=== PATIENT | male | born 1950 | race Caucasian/White ===

== ENCOUNTER 2022-05-27 09:19 | Inpatient (IN) | payer OTHER ==
[2022-05-27] VITALS (14 sets, daily range): BP systolic 90–161; BP diastolic 59–105
[~2022-05-27] VITALS: Ht 170.2 cm; Wt 78.9 kg
[2022-05-27 10:36] LABS: BG BASE EXCESS -3.7 mmol/L (-2.0-2.0); BG DEOXYHEMOGLOBIN 0.4 % (0.0-5.0); BG FRACTION INSPIRED OXYGEN 100; BG HCO3 ACT 25.4 mmol/L (22.0-26.0); BG METHEMOGLOBIN 0.3 % (0.0-1.5); BG OXYGEN SATURATION 99.6 % (92.0-98.5); BG OXYHEMOGLOBIN 98.3 % (94.0-97.0); BG PCO2 66.1 mmHg (35.0-45.0); BG PH 7.203 (7.350-7.450); BG PO2 377.7 mmHg (75.0-100.0); BG SAMPLE SITE RIGHT RADIAL; BG TOTAL HEMOGLOBIN 13.1 g/dL (12.0-18.0); BG TOTAL RESPIRATORY RATE 39 b/min; BG VENT MODE MASK - BIPAP
[2022-05-27 10:37] LABS: BASOPHILS % 0.8 % (0.0-2.0); EOSINOPHILS % 2.2 % (0.0-5.0); HEMATOCRIT. 37.8 % (42.0-52.0); HEMOGLOBIN. 12.4 g/dL (14.0-18.0); LYMPHOCYTES % 26.1 % (20.0-50.0); MEAN CORPUSCULAR HEMOGLOBIN 31.5 pg (28.0-32.0); MEAN CORPUSCULAR VOLUME 95.9 fL (80.0-94.0); MEAN PLATELET VOLUME 8.6 fl (7.4-10.4); MONOCYTES % 5.4 % (2.0-8.0); NEUTROPHILS % 65.5 % (40.0-76.0); PLATELET 215 x1000/uL (130-400); RED BLOOD CELL COUNT 3.94 mill/uL (4.7-6.1); RED CELL DISTRIBUTION WIDTH 14.3 % (11.6-14.6)
[2022-05-27 10:42] LABS: INR 1.1; PROTHROMBIN TIME 11.4 sec (9.6-11.0)
[2022-05-27 11:01] LABS: CHLORIDE 103 mEq/L (98-107)
[2022-05-27] MEDS ORDERED: FUROSEMIDE 40MG/4ML VIAL IVP ONE (11:15)
[2022-05-27] MEDS ORDERED: ASPIRIN 325MG EC TABLET PO NR (11:45)
[2022-05-27] MEDS ORDERED: CLONIDINE 0.1MG TABLET PO PRN (12:45)
[2022-05-27] MEDS ORDERED: GUAIFENESIN 200MG/10ML SUGAR FREE UDC PO PRN (12:45)
[2022-05-27] MEDS ORDERED: ACETAMINOPHEN 325MG TABLET PO PRN (12:45)
[2022-05-27] MEDS ORDERED: DIPHENHYDRAMINE 50MG/ML VIAL IV PRN (12:45)
[2022-05-27] MEDS ORDERED: DOCUSATE SODIUM 100MG CAPSULE PO PRN (12:45)
[2022-05-27] MEDS ORDERED: TRAMADOL 50MG TABLET PO PRN (12:45)
[2022-05-27] MEDS ORDERED: MAGNESIUM/ALUMINUM HYDROXIDE/SIMETHICONE 30ML UDC PO PRN (12:45)
[2022-05-27] MEDS ORDERED: ONDANSETRON HCL 4MG/2ML INJ IV PRN (12:45)
[2022-05-27] MEDS ORDERED: NALOXONE HCL 0.4MG/ML VIAL IV PRN (13:00)
[2022-05-27] MEDS: AMLODIPINE 10MG TABLET PO SCH (13:25)
[2022-05-27 15:10] LABS: BG CARBOXYHEMOGLOBIN 0.5 % (0.5-1.5); BG DEOXYHEMOGLOBIN 5.4 % (0.0-5.0); BG FRACTION INSPIRED OXYGEN 32; BG HCO3 ACT 21.5 mmol/L (22.0-26.0); BG METHEMOGLOBIN 0.3 % (0.0-1.5); BG OXYGEN SATURATION 94.6 % (92.0-98.5); BG OXYHEMOGLOBIN 93.8 % (94.0-97.0); BG PCO2 40.5 mmHg (35.0-45.0); BG PH 7.342 (7.350-7.450); BG PO2 76.2 mmHg (75.0-100.0); BG SAMPLE SITE RIGHT BRACHIAL; BG TOTAL HEMOGLOBIN 12.2 g/dL (12.0-18.0); BG VENT MODE NASAL CANNULA
[2022-05-27] MEDS: ENOXAPARIN 30MG/0.3ML SYR SUBCUT SCH (15:18)
[2022-05-27] MEDS: IPRATROPIUM/ALBUTEROL 0.5-3(2.5)MG/3ML NEB HHN SCH ×2 (16:12→20:59)
[2022-05-27] MEDS ORDERED: DEXTROSE 50% WATER 50ML SYRINGE IV PRN (17:15)
[2022-05-27] MEDS: BLOOD SUGAR DIAGNOSTIC STRIP TEST SCH ×2 (17:33→21:00)
[2022-05-27] MEDS: INSULIN LISPRO 100 UNITS/ML SUBCUT SCH ×2 (17:37→21:43)
[2022-05-28] VITALS (9 sets, daily range): BP systolic 111–134; BP diastolic 41–79
[2022-05-28] MEDS: IPRATROPIUM/ALBUTEROL 0.5-3(2.5)MG/3ML NEB HHN SCH ×6 (00:26→21:45)
[2022-05-28 06:13] LABS: CHLORIDE 107 mEq/L (98-107)
[2022-05-28 06:21] LABS: BASOPHILS % 0.5 % (0.0-2.0); EOSINOPHILS % 0.9 % (0.0-5.0); HEMATOCRIT. 31.5 % (42.0-52.0); HEMOGLOBIN. 10.4 g/dL (14.0-18.0); LYMPHOCYTES % 16.7 % (20.0-50.0); MEAN CORPUSCULAR HEMOGLOBIN 31.3 pg (28.0-32.0); MEAN CORPUSCULAR VOLUME 94.9 fL (80.0-94.0); MEAN PLATELET VOLUME 8.4 fl (7.4-10.4); MONOCYTES % 7.1 % (2.0-8.0); NEUTROPHILS % 74.8 % (40.0-76.0); PLATELET 165 x1000/uL (130-400); RED BLOOD CELL COUNT 3.32 mill/uL (4.7-6.1); RED CELL DISTRIBUTION WIDTH 14.4 % (11.6-14.6)
[2022-05-28 06:28] LABS: HDL CHOLESTEROL 49 mg/dL (40-59); LDL CHOLESTEROL 43 mg/dL (5-100)
[2022-05-28] MEDS: BLOOD SUGAR DIAGNOSTIC STRIP TEST SCH ×4 (08:11→20:29)
[2022-05-28] MEDS: AMLODIPINE 10MG TABLET PO SCH (08:13)
[2022-05-28] MEDS: ASPIRIN 81MG EC TABLET PO SCH (08:14)
[2022-05-28] MEDS: INSULIN LISPRO 100 UNITS/ML SUBCUT SCH ×4 (08:28→20:37)
[2022-05-28 09:05] LABS: BG BASE EXCESS 0.9 mmol/L (-2.0-2.0); BG CARBOXYHEMOGLOBIN 0.9 % (0.5-1.5); BG DEOXYHEMOGLOBIN 5.3 % (0.0-5.0); BG FRACTION INSPIRED OXYGEN 21; BG HCO3 ACT 25.7 mmol/L (22.0-26.0); BG METHEMOGLOBIN 0.3 % (0.0-1.5); BG OXYGEN SATURATION 94.6 % (92.0-98.5); BG OXYHEMOGLOBIN 93.5 % (94.0-97.0); BG PCO2 41.6 mmHg (35.0-45.0); BG PH 7.408 (7.350-7.450); BG PO2 70.2 mmHg (75.0-100.0); BG SAMPLE SITE RIGHT BRACHIAL; BG TOTAL HEMOGLOBIN 11.6 g/dL (12.0-18.0); BG VENT MODE ROOM AIR
[2022-05-28] MEDS: ENOXAPARIN 30MG/0.3ML SYR SUBCUT SCH (17:10)
[2022-05-29] VITALS (14 sets, daily range): BP systolic 108–133; BP diastolic 35–75
[2022-05-29] MEDS: IPRATROPIUM/ALBUTEROL 0.5-3(2.5)MG/3ML NEB HHN SCH ×3 (04:00→08:17)
[2022-05-29 07:02] LABS: BASOPHILS % 0.9 % (0.0-2.0); EOSINOPHILS % 1.9 % (0.0-5.0); HEMATOCRIT. 29.3 % (42.0-52.0); HEMOGLOBIN. 9.9 g/dL (14.0-18.0); MEAN CORPUSCULAR HEMOGLOBIN 32.2 pg (28.0-32.0); MEAN CORPUSCULAR VOLUME 94.8 fL (80.0-94.0); MEAN PLATELET VOLUME 8.4 fl (7.4-10.4); MONOCYTES % 7.4 % (2.0-8.0); NEUTROPHILS % 70.8 % (40.0-76.0); PLATELET 140 x1000/uL (130-400); RED BLOOD CELL COUNT 3.09 mill/uL (4.7-6.1); RED CELL DISTRIBUTION WIDTH 14.7 % (11.6-14.6)
[2022-05-29] MEDS: BLOOD SUGAR DIAGNOSTIC STRIP TEST SCH ×2 (07:51→13:01)
[2022-05-29] MEDS: INSULIN LISPRO 100 UNITS/ML SUBCUT SCH ×2 (07:51→13:18)
[2022-05-29 09:25] LABS: BG BASE EXCESS -2.3 mmol/L (-2.0-2.0); BG CARBOXYHEMOGLOBIN 0.4 % (0.5-1.5); BG DEOXYHEMOGLOBIN 4.8 % (0.0-5.0); BG FRACTION INSPIRED OXYGEN 21; BG HCO3 ACT 21.6 mmol/L (22.0-26.0); BG METHEMOGLOBIN 0.3 % (0.0-1.5); BG OXYGEN SATURATION 95.2 % (92.0-98.5); BG OXYHEMOGLOBIN 94.5 % (94.0-97.0); BG PCO2 34.1 mmHg (35.0-45.0); BG PO2 78.8 mmHg (75.0-100.0); BG SAMPLE SITE RIGHT RADIAL; BG TOTAL HEMOGLOBIN 10.7 g/dL (12.0-18.0); BG VENT MODE ROOM AIR
[2022-05-29] MEDS: ASPIRIN 81MG EC TABLET PO SCH (09:44)
[2022-05-29 17:31] LABS: HEPATITIS B SURFACE ANTIGEN NEGATIVE
== END 2022-05-29 16:25 | disposition home or self-care (01) | DRG 291 ==
LOC: ER 09:19 → EDBEDREQ 10:53 → EDBEDREQTM 10:53 → EDBEDREQSVC 10:53 → MICUSO 11:40 → EDBEDREQ 11:51 → EDBEDREQTM 11:51 → 5EST 14:09
PROVIDERS: ADMIT Hospitalist; ATTEND Hospitalist
PROC: 5A09357 Assistance with Respiratory Ventilation, Less than 24 Consecutive Hours, Continuous Positive Airway Pressure (ICD-10-PCS; principal; 2022-05-27)
PROC: 5A1D70Z Performance of Urinary Filtration, Intermittent, Less than 6 Hours Per Day (ICD-10-PCS; 2022-05-27)
PROC: 5A1D70Z Performance of Urinary Filtration, Intermittent, Less than 6 Hours Per Day (ICD-10-PCS; 2022-05-29)
DX: I13.2 Hypertensive heart and chronic kidney disease with heart failure and with stage 5 chronic kidney disease, or end stage renal disease (principal); I50.43 Acute on chronic combined systolic (congestive) and diastolic (congestive) heart failure; J96.01 Acute respiratory failure with hypoxia; J96.02 Acute respiratory failure with hypercapnia; N18.6 End stage renal disease; E87.29 Other acidosis; E11.22 Type 2 diabetes mellitus with diabetic chronic kidney disease; Z20.822 Contact with and (suspected) exposure to COVID-19; E11.65 Type 2 diabetes mellitus with hyperglycemia; D72.829 Elevated white blood cell count, unspecified; I25.10 Atherosclerotic heart disease of native coronary artery without angina pectoris; D64.9 Anemia, unspecified; Z95.1 Presence of aortocoronary bypass graft; Z99.2 Dependence on renal dialysis; Z82.49 Family history of ischemic heart disease and other diseases of the circulatory system
CPT/HCPCS: 36415; 36600; 71045; 80048; 80053; 80061; 82375; 82805; 82962; 83036; 84484; 85025; 86705; 86709; 86803; 87340; 87426; 90935; 93005; 93970; 94640; 94660; 97162; 97166; 97535; 99285; C9803; J1650; J1815; J1940

== ENCOUNTER 2022-07-29 07:43 | Inpatient (IN) | payer OTHER ==
[2022-07-29] VITALS (36 sets, daily range): BP systolic 55–197; BP diastolic 35–114
[~2022-07-29] VITALS: Ht 165.1 cm; Wt 68.0 kg
[2022-07-29] MEDS ORDERED: NITROGLYCERIN 50MG PREMIX 250 ML IV ONE (08:00)
[2022-07-29] MEDS ORDERED: FUROSEMIDE 40MG/4ML VIAL IV ONE (08:00)
[2022-07-29] MEDS ORDERED: SUCCINYLCHOLINE CHLORIDE 200MG/10ML IV ONE ×2 (08:15→08:57)
[2022-07-29] MEDS ORDERED: ETOMIDATE 2MG/ML 10ML VIAL IV ONE ×2 (08:15→08:57)
[2022-07-29] MEDS: NITROGLYCERIN 50MG PREMIX 250 ML IV NR ×2 (08:15→18:36)
[2022-07-29] MEDS ORDERED: PROPOFOL 200MG/20ML VIAL IV ONE (08:15)
[2022-07-29] MEDS ORDERED: PROPOFOL 10MG/ML 100ML 100 ML IV SCH (08:45)
[2022-07-29] MEDS ORDERED: PROPOFOL 10MG/ML 100ML 100 ML IV PRN (08:45)
[2022-07-29 09:06] LABS: BASOPHILS % 0.5 % (0.0-2.0); HEMATOCRIT. 43.8 % (42.0-52.0); HEMOGLOBIN. 14.3 g/dL (14.0-18.0); LYMPHOCYTES % 39.7 % (20.0-50.0); MEAN CORPUSCULAR HEMOGLOBIN 31.4 pg (28.0-32.0); MEAN CORPUSCULAR VOLUME 96.6 fL (80.0-94.0); MONOCYTES % 4.3 % (2.0-8.0); NEUTROPHILS % 52.5 % (40.0-76.0); PLATELET 178 x1000/uL (130-400); RED BLOOD CELL COUNT 4.54 mill/uL (4.7-6.1); RED CELL DISTRIBUTION WIDTH 14.4 % (11.6-14.6)
[2022-07-29 09:12] LABS: CHLORIDE 111 mEq/L (98-107); INR 1.1; PARTIAL THROMBOPLASTIN TIME 31.7 sec (23.4-31.0); PROTHROMBIN TIME 11.7 sec (9.6-11.0)
[2022-07-29] MEDS ORDERED: PIPERACILLIN/TAZOBACTAM 3.375GM/50ML PREMIX IV ONE (09:30)
[2022-07-29] MEDS ORDERED: PIPERACILLIN/TAZ 3.375G PREMIX 50 ML IV NR (09:45)
[2022-07-29 10:34] LABS: BG BASE EXCESS -5.3 mmol/L (-2.0-2.0); BG CARBOXYHEMOGLOBIN 0.9 % (0.5-1.5); BG DEOXYHEMOGLOBIN 0.3 % (0.0-5.0); BG FRACTION INSPIRED OXYGEN 100; BG HCO3 ACT 21.4 mmol/L (22.0-26.0); BG METHEMOGLOBIN 0.3 % (0.0-1.5); BG OXYGEN SATURATION 99.7 % (92.0-98.5); BG OXYHEMOGLOBIN 98.5 % (94.0-97.0); BG PCO2 46.1 mmHg (35.0-45.0); BG PH 7.285 (7.350-7.450); BG PO2 476.3 mmHg (75.0-100.0); BG SAMPLE SITE RIGHT RADIAL; BG VENT MODE VENT - AC
[2022-07-29] MEDS ORDERED: FENTANYL 2500MCG/250ML PMX 250 ML IV ONE (11:00)
[2022-07-29] MEDS ORDERED: FENTANYL 2500MCG/250ML PMX 250 ML IV PRN ×2 (11:15→14:30)
[2022-07-29] MEDS ORDERED: CALCIUM GLUCONATE 1,000 MG in DEXT 5% WATER 100 ML IV ONE (11:45)
[2022-07-29] MEDS ORDERED: DEXTROSE 50% WATER 50ML SYRINGE IV ONE (11:45)
[2022-07-29] MEDS ORDERED: INSULIN REGULAR (HUMULIN R) 300UNITS/3ML VIAL IV ONE (11:45)
[2022-07-29] MEDS ORDERED: CALCIUM GLUCONATE 1GM PREMIX 50 ML IV NR (11:45)
[2022-07-29] MEDS ORDERED: FUROSEMIDE 100MG/10ML VIAL IV ONE (11:45)
[2022-07-29] MEDS ORDERED: SODIUM BICARBONATE 8.4% 1 MEQ/ML 50ML SYR IV ONE (11:45)
[2022-07-29] MEDS ORDERED: FUROSEMIDE 100MG/10ML VIAL IV NR (13:30)
[2022-07-29] MEDS ORDERED: MAGNESIUM/ALUMINUM HYDROXIDE/SIMETHICONE 30ML UDC PO PRN (14:00)
[2022-07-29] MEDS ORDERED: HYDROCODONE/ACETAMINOPHEN 5/325MG TABLET PO PRN (14:00)
[2022-07-29] MEDS ORDERED: FENTANYL CITRATE/PF 2,500 MCG in SODIUM CHLORIDE 0.9% 200 ML IV PRN (14:00)
[2022-07-29] MEDS ORDERED: IPRATROPIUM/ALBUTEROL 0.5-3(2.5)MG/3ML NEB HHN PRN ×2 (14:00)
[2022-07-29] MEDS ORDERED: ONDANSETRON HCL 4MG/2ML INJ IV PRN (14:00)
[2022-07-29] MEDS ORDERED: ACETAMINOPHEN 325MG TABLET PO PRN ×2 (14:00)
[2022-07-29] MEDS ORDERED: CLONIDINE 0.1MG TABLET PO PRN (14:00)
[2022-07-29] MEDS ORDERED: NOREPINEPHRINE 8MG/250ML PMX 250 ML IV ONE (14:15)
[2022-07-29] MEDS ORDERED: DEXTROSE 50% WATER 50ML SYRINGE IV PRN (14:30)
[2022-07-29] MEDS ORDERED: NOREPINEPHRINE 8 MG in DEXTROSE 5% WATER 250 ML IV PRN (14:30)
[2022-07-29] MEDS ORDERED: AZITHROMYCIN 500 MG in DEXT 5% WATER 250 ML IV SCH (15:00)
[2022-07-29] MEDS ORDERED: AZITHROMYCIN 500MG/250ML 250 ML IV NR (16:02)
[2022-07-29] MEDS: BLOOD SUGAR DIAGNOSTIC STRIP TEST SCH ×2 (16:30→21:00)
[2022-07-29] MEDS ORDERED: NALOXONE HCL 0.4MG/ML VIAL IV PRN (16:30)
[2022-07-29] MEDS: ENOXAPARIN 30MG/0.3ML SYR SUBCUT SCH (16:41)
[2022-07-29 16:51] LABS: HEPATITIS B SURFACE ANTIGEN NEGATIVE
[2022-07-29] MEDS: INSULIN LISPRO 100 UNITS/ML SUBCUT SCH ×2 (17:00→22:14)
[2022-07-29] MEDS: FUROSEMIDE 40MG/4ML VIAL IV SCH (18:29)
[2022-07-29] MEDS ORDERED: AZITHROMYCIN 1,000 MG in DEXT 5% WATER 250 ML IV NR (18:30)
[2022-07-29] MEDS: CARVEDILOL 3.125 MG TABLET PO SCH (18:30)
[2022-07-29] MEDS: PROPOFOL 10MG/ML 100ML 100 ML IV PRN (18:36)
[2022-07-29 19:49] LABS: CLARITY URINE CLOUDY (CLEAR); COLOR URINE ORANGE (YELLOW); KETONES URINE NEGATIVE (NEGATIVE); LEUKOCYTE ESTERASE URINE 3+ (NEGATIVE); NITRITE URINE NEGATIVE (NEGATIVE); OCCULT BLOOD URINE 3+ (NEGATIVE); PH URINE 7.5 (4.5-8.0); PROTEIN URINE 2+ (NEGATIVE); SPECIFIC GRAVITY URINE 1.012 (1.005-1.030); UROBILINOGEN URINE 0.2 E.U./dL (0.2-1.0)
[2022-07-29] MEDS: IPRATROPIUM/ALBUTEROL 0.5-3(2.5)MG/3ML NEB HHN SCH (20:39)
[2022-07-29 22:10] LABS: *AMPHETAMINES SCREEN URINE NEGATIVE (NEGATIVE); *BARBITURATES SCREEN URINE NEGATIVE (NEGATIVE); *BENZODIAZEPINES SCREEN URINE NEGATIVE (NEGATIVE); *COCAINE SCREEN URINE NEGATIVE (NEGATIVE); CANNABINOID URINE SCREEN NEGATIVE (NEGATIVE); METHADONE URINE SCREEN NEGATIVE (NEGATIVE); OPIATES URINE SCREEN NEGATIVE (NEGATIVE); PHENCYCLIDINE URINE SCREEN NEGATIVE (NEGATIVE)
[2022-07-29] MEDS: ATORVASTATIN CALCIUM 40MG TABLET PO SCH (22:13)
[2022-07-29] MEDS: CEFTRIAXONE 1,000 MG in DEXTROSE 5% WATER 50 ML IV SCH (22:44)
[2022-07-30] VITALS (72 sets, daily range): BP systolic 91–140; BP diastolic 23–113
[2022-07-30] MEDS: PROPOFOL 10MG/ML 100ML 100 ML IV PRN ×2 (00:04→05:21)
[2022-07-30] MEDS: IPRATROPIUM/ALBUTEROL 0.5-3(2.5)MG/3ML NEB HHN SCH ×3 (00:47→14:32)
[2022-07-30 05:59] LABS: BASOPHILS % 0.7 % (0.0-2.0); EOSINOPHILS % 2.3 % (0.0-5.0); HEMATOCRIT. 37.9 % (42.0-52.0); HEMOGLOBIN. 12.8 g/dL (14.0-18.0); LYMPHOCYTES % 20.9 % (20.0-50.0); MEAN CORPUSCULAR HEMOGLOBIN 31.8 pg (28.0-32.0); MEAN CORPUSCULAR VOLUME 94.2 fL (80.0-94.0); MEAN PLATELET VOLUME 9.1 fl (7.4-10.4); MONOCYTES % 9.2 % (2.0-8.0); NEUTROPHILS % 66.9 % (40.0-76.0); PLATELET 154 x1000/uL (130-400); RED BLOOD CELL COUNT 4.03 mill/uL (4.7-6.1); RED CELL DISTRIBUTION WIDTH 14.7 % (11.6-14.6)
[2022-07-30] MEDS: INSULIN LISPRO 100 UNITS/ML SUBCUT SCH ×4 (06:06→22:00)
[2022-07-30] MEDS: BLOOD SUGAR DIAGNOSTIC STRIP TEST SCH ×4 (06:06→21:42)
[2022-07-30 07:00] LABS: CHLORIDE 106 mEq/L (98-107)
[2022-07-30 07:25] LABS: HDL CHOLESTEROL 46 mg/dL (40-59); LDL CHOLESTEROL 34 mg/dL (5-100); T4 FREE 1.26 ng/dL (0.76-1.46)
[2022-07-30] MEDS: FUROSEMIDE 40MG/4ML VIAL IV SCH ×2 (08:28→16:28)
[2022-07-30] MEDS: PANTOPRAZOLE SODIUM 40 MG/VIAL IV SCH (08:28)
[2022-07-30 08:51] LABS: BG BASE EXCESS 1.5 mmol/L (-2.0-2.0); BG CARBOXYHEMOGLOBIN 0.4 % (0.5-1.5); BG DEOXYHEMOGLOBIN 1.3 % (0.0-5.0); BG FRACTION INSPIRED OXYGEN 35; BG HCO3 ACT 24.2 mmol/L (22.0-26.0); BG METHEMOGLOBIN 0.2 % (0.0-1.5); BG OXYGEN SATURATION 98.7 % (92.0-98.5); BG OXYHEMOGLOBIN 98.1 % (94.0-97.0); BG PCO2 32.7 mmHg (35.0-45.0); BG PH 7.488 (7.350-7.450); BG PO2 150.1 mmHg (75.0-100.0); BG SAMPLE SITE RIGHT RADIAL; BG TOTAL HEMOGLOBIN 13.7 g/dL (12.0-18.0); BG VENT MODE VENT - AC
[2022-07-30] MEDS: CARVEDILOL 3.125 MG TABLET PO SCH ×2 (09:00→16:29)
[2022-07-30] MEDS ORDERED: CEFTRIAXONE 1 G PREMIX 50 ML IV SCH (09:00)
[2022-07-30 12:10] LABS: BG CARBOXYHEMOGLOBIN 0.3 % (0.5-1.5); BG DEOXYHEMOGLOBIN 1.8 % (0.0-5.0); BG FRACTION INSPIRED OXYGEN 35; BG HCO3 ACT 23.9 mmol/L (22.0-26.0); BG METHEMOGLOBIN 0.1 % (0.0-1.5); BG OXYGEN SATURATION 98.2 % (92.0-98.5); BG OXYHEMOGLOBIN 97.8 % (94.0-97.0); BG PCO2 36.9 mmHg (35.0-45.0); BG PO2 122.5 mmHg (75.0-100.0); BG SAMPLE SITE RIGHT RADIAL; BG TOTAL HEMOGLOBIN 13.2 g/dL (12.0-18.0); BG VENT MODE VENT - CPAP
[2022-07-30] MEDS: ENOXAPARIN 30MG/0.3ML SYR SUBCUT SCH (14:07)
[2022-07-30] MEDS ORDERED: AZITHROMYCIN 500 MG in DEXT 5% WATER 250 ML IV SCH (16:00)
[2022-07-30] MEDS: ASPIRIN 81MG TABLET PO SCH (16:28)
[2022-07-30] MEDS ORDERED: IPRATROPIUM BROMIDE (0.02%) 0.5MG/2.5ML NEB HHN PRN (20:00)
[2022-07-30] MEDS ORDERED: ALBUTEROL (0.083%) 2.5MG/3ML NEB HHN PRN (20:00)
[2022-07-30] MEDS: ATORVASTATIN CALCIUM 40MG TABLET PO SCH (21:59)
[2022-07-31] VITALS (12 sets, daily range): BP systolic 89–133; BP diastolic 28–94
[2022-07-31] MEDS: CEFTRIAXONE 1,000 MG in DEXTROSE 5% WATER 50 ML IV SCH (00:11)
[2022-07-31] MEDS: IPRATROPIUM BROMIDE (0.02%) 0.5MG/2.5ML NEB HHN SCH ×3 (01:56→14:54)
[2022-07-31] MEDS: ALBUTEROL (0.083%) 2.5MG/3ML NEB HHN SCH ×3 (01:56→14:54)
[2022-07-31 05:57] LABS: BASOPHILS % 0.6 % (0.0-2.0); EOSINOPHILS % 2.8 % (0.0-5.0); HEMATOCRIT. 36.9 % (42.0-52.0); HEMOGLOBIN. 12.4 g/dL (14.0-18.0); LYMPHOCYTES % 24.1 % (20.0-50.0); MEAN CORPUSCULAR HEMOGLOBIN 31.6 pg (28.0-32.0); MEAN CORPUSCULAR VOLUME 93.8 fL (80.0-94.0); MEAN PLATELET VOLUME 8.9 fl (7.4-10.4); MONOCYTES % 9.6 % (2.0-8.0); NEUTROPHILS % 62.9 % (40.0-76.0); PLATELET 122 x1000/uL (130-400); RED BLOOD CELL COUNT 3.93 mill/uL (4.7-6.1); RED CELL DISTRIBUTION WIDTH 14.6 % (11.6-14.6)
[2022-07-31] MEDS: BLOOD SUGAR DIAGNOSTIC STRIP TEST SCH ×4 (07:30→21:33)
[2022-07-31 07:43] LABS: CHLORIDE 105 mEq/L (98-107)
[2022-07-31] MEDS: INSULIN LISPRO 100 UNITS/ML SUBCUT SCH ×4 (08:00→21:00)
[2022-07-31] MEDS: CARVEDILOL 3.125 MG TABLET PO SCH ×2 (09:00→16:42)
[2022-07-31] MEDS: ASPIRIN 81MG TABLET PO SCH (09:08)
[2022-07-31] MEDS: FUROSEMIDE 40MG/4ML VIAL IV SCH ×2 (09:08→16:43)
[2022-07-31] MEDS: PANTOPRAZOLE SODIUM 40 MG/VIAL IV SCH (09:08)
[2022-07-31 10:57] LABS: T4 FREE 1.33 ng/dL (0.76-1.46)
[2022-07-31] MEDS ORDERED: AMIODARONE HCL 900 MG in DEXT 5% WATER 482 ML IV SCH (13:00)
[2022-07-31] MEDS ORDERED: METOPROLOL TARTRATE 5MG/5ML VIAL IV NR (13:00)
[2022-07-31] MEDS ORDERED: ENOXAPARIN 60MG/0.6ML SYR SUBCUT SCH (15:00)
[2022-07-31] MEDS: AZITHROMYCIN 500 MG TABLET PO SCH (16:19)
[2022-07-31 17:04] LABS: CREATINE KINASE MB FRACTION 3.5 ng/mL (0.5-3.6)
[2022-07-31] MEDS: AMOXICILLIN/POTASSIUM CLAVULANATE 500/125MG TAB PO SCH (21:20)
[2022-07-31] MEDS: ATORVASTATIN CALCIUM 40MG TABLET PO SCH (21:21)
[2022-08-01] VITALS (7 sets, daily range): BP systolic 63–134; BP diastolic 34–101
[2022-08-01 00:52] LABS: CREATINE KINASE MB FRACTION 11.9 ng/mL (0.5-3.6)
[2022-08-01] MEDS: BLOOD SUGAR DIAGNOSTIC STRIP TEST SCH ×4 (06:54→21:00)
[2022-08-01] MEDS: INSULIN LISPRO 100 UNITS/ML SUBCUT SCH ×4 (06:55→21:52)
[2022-08-01 08:05] LABS: BASOPHILS % 0.7 % (0.0-2.0); EOSINOPHILS % 4.3 % (0.0-5.0); HEMATOCRIT. 35.4 % (42.0-52.0); HEMOGLOBIN. 11.8 g/dL (14.0-18.0); LYMPHOCYTES % 25.1 % (20.0-50.0); MEAN CORPUSCULAR HEMOGLOBIN 31.8 pg (28.0-32.0); MEAN CORPUSCULAR VOLUME 95.1 fL (80.0-94.0); MEAN PLATELET VOLUME 9.2 fl (7.4-10.4); MONOCYTES % 9.4 % (2.0-8.0); NEUTROPHILS % 60.5 % (40.0-76.0); PLATELET 117 x1000/uL (130-400); RED BLOOD CELL COUNT 3.72 mill/uL (4.7-6.1); RED CELL DISTRIBUTION WIDTH 14.4 % (11.6-14.6)
[2022-08-01 08:36] LABS: CHLORIDE 104 mEq/L (98-107)
[2022-08-01 08:48] LABS: CREATINE KINASE 246 IU/L (39-308); CREATINE KINASE MB FRACTION 10.9 ng/mL (0.5-3.6)
[2022-08-01] MEDS ORDERED: FAMOTIDINE 20MG/2ML VIAL IV SCH (09:00)
[2022-08-01] MEDS: FUROSEMIDE 40MG/4ML VIAL IV SCH ×2 (09:27→16:16)
[2022-08-01] MEDS: AMOXICILLIN/POTASSIUM CLAVULANATE 500/125MG TAB PO SCH ×2 (09:27→21:53)
[2022-08-01] MEDS: ASPIRIN 81MG TABLET PO SCH (09:27)
[2022-08-01] MEDS: CARVEDILOL 3.125 MG TABLET PO SCH ×2 (09:27→16:27)
[2022-08-01] MEDS: ENOXAPARIN 80MG/0.8ML SYR SUBCUT SCH (14:19)
[2022-08-01] MEDS: AMIODARONE HCL 200 MG TABLET PO SCH (16:15)
[2022-08-01] MEDS: AZITHROMYCIN 500 MG TABLET PO SCH (16:16)
[2022-08-01] MEDS: ATORVASTATIN CALCIUM 40MG TABLET PO SCH (21:53)
[2022-08-02] VITALS (18 sets, daily range): BP systolic 93–134; BP diastolic 37–91
[2022-08-02 07:13] LABS: HEMOGLOBIN. 11.9 g/dL (14.0-18.0); LYMPHOCYTES % 25.3 % (20.0-50.0); MEAN CORPUSCULAR HEMOGLOBIN 31.1 pg (28.0-32.0); MEAN CORPUSCULAR VOLUME 93.9 fL (80.0-94.0); MEAN PLATELET VOLUME 9.2 fl (7.4-10.4); MONOCYTES % 7.9 % (2.0-8.0); NEUTROPHILS % 59.8 % (40.0-76.0); PLATELET 124 x1000/uL (130-400); RED BLOOD CELL COUNT 3.84 mill/uL (4.7-6.1); RED CELL DISTRIBUTION WIDTH 14.1 % (11.6-14.6)
[2022-08-02] MEDS: INSULIN LISPRO 100 UNITS/ML SUBCUT SCH ×4 (08:00→21:00)
[2022-08-02 08:20] LABS: CHLORIDE 109 mEq/L (98-107)
[2022-08-02] MEDS: CARVEDILOL 3.125 MG TABLET PO SCH ×2 (08:40→17:00)
[2022-08-02] MEDS: BLOOD SUGAR DIAGNOSTIC STRIP TEST SCH ×4 (08:40→21:00)
[2022-08-02] MEDS: FUROSEMIDE 40MG/4ML VIAL IV SCH ×2 (08:41→17:00)
[2022-08-02] MEDS: ASPIRIN 81MG TABLET PO SCH (08:41)
[2022-08-02] MEDS: AMIODARONE HCL 200 MG TABLET PO SCH ×2 (08:41→17:13)
[2022-08-02] MEDS: AMOXICILLIN/POTASSIUM CLAVULANATE 500/125MG TAB PO SCH ×2 (08:41→20:22)
[2022-08-02] MEDS: FAMOTIDINE 20MG TABLET PO SCH (08:42)
[2022-08-02] MEDS: AZITHROMYCIN 500 MG TABLET PO SCH (15:30)
[2022-08-02] MEDS: ENOXAPARIN 80MG/0.8ML SYR SUBCUT SCH (15:30)
[2022-08-02] MEDS: ATORVASTATIN CALCIUM 40MG TABLET PO SCH (20:23)
[2022-08-03 04:00] VITALS: BP 152/74
[2022-08-03 07:28] LABS: BASOPHILS % 1.3 % (0.0-2.0); EOSINOPHILS % 4.5 % (0.0-5.0); HEMATOCRIT. 34.9 % (42.0-52.0); HEMOGLOBIN. 11.7 g/dL (14.0-18.0); LYMPHOCYTES % 23.6 % (20.0-50.0); MEAN CORPUSCULAR HEMOGLOBIN 31.4 pg (28.0-32.0); MEAN CORPUSCULAR VOLUME 93.7 fL (80.0-94.0); MEAN PLATELET VOLUME 8.8 fl (7.4-10.4); MONOCYTES % 10.2 % (2.0-8.0); NEUTROPHILS % 60.4 % (40.0-76.0); PLATELET 141 x1000/uL (130-400); RED BLOOD CELL COUNT 3.73 mill/uL (4.7-6.1); RED CELL DISTRIBUTION WIDTH 14.4 % (11.6-14.6)
[2022-08-03] MEDS: BLOOD SUGAR DIAGNOSTIC STRIP TEST SCH ×4 (07:30→21:00)
[2022-08-03 08:00] VITALS: BP 107/67
[2022-08-03] MEDS: INSULIN LISPRO 100 UNITS/ML SUBCUT SCH ×4 (08:00→22:01)
[2022-08-03 08:19] LABS: CHLORIDE 104 mEq/L (98-107)
[2022-08-03] MEDS: FUROSEMIDE 40MG/4ML VIAL IV SCH ×2 (09:46→17:58)
[2022-08-03] MEDS: CARVEDILOL 3.125 MG TABLET PO SCH ×2 (09:46→17:00)
[2022-08-03] MEDS: FAMOTIDINE 20MG TABLET PO SCH (09:46)
[2022-08-03] MEDS: AMOXICILLIN/POTASSIUM CLAVULANATE 500/125MG TAB PO SCH ×2 (09:49→22:02)
[2022-08-03] MEDS: ASPIRIN 81MG TABLET PO SCH (09:49)
[2022-08-03] MEDS: AMIODARONE HCL 200 MG TABLET PO SCH ×2 (09:49→17:58)
[2022-08-03 12:00] VITALS: BP 120/73
[2022-08-03 16:00] VITALS: BP 113/74
[2022-08-03] MEDS: ENOXAPARIN 80MG/0.8ML SYR SUBCUT SCH (17:58)
[2022-08-03 20:00] VITALS: BP 113/42
[2022-08-03] MEDS: ATORVASTATIN CALCIUM 40MG TABLET PO SCH (22:02)
[2022-08-04] VITALS (14 sets, daily range): BP systolic 86–126; BP diastolic 14–84
[2022-08-04 07:17] LABS: INR 1.1; PROTHROMBIN TIME 11.7 sec (9.6-11.0)
[2022-08-04 07:18] LABS: BASOPHILS % 1.1 % (0.0-2.0); EOSINOPHILS % 5.7 % (0.0-5.0); HEMATOCRIT. 33.8 % (42.0-52.0); HEMOGLOBIN. 11.5 g/dL (14.0-18.0); LYMPHOCYTES % 32.5 % (20.0-50.0); MEAN CORPUSCULAR HEMOGLOBIN 31.8 pg (28.0-32.0); MEAN CORPUSCULAR VOLUME 93.6 fL (80.0-94.0); MONOCYTES % 9.2 % (2.0-8.0); NEUTROPHILS % 51.5 % (40.0-76.0); PLATELET 149 x1000/uL (130-400); RED BLOOD CELL COUNT 3.61 mill/uL (4.7-6.1); RED CELL DISTRIBUTION WIDTH 14.2 % (11.6-14.6)
[2022-08-04] MEDS: BLOOD SUGAR DIAGNOSTIC STRIP TEST SCH ×4 (07:44→21:17)
[2022-08-04] MEDS: INSULIN LISPRO 100 UNITS/ML SUBCUT SCH ×4 (07:44→21:20)
[2022-08-04] MEDS: FUROSEMIDE 40MG/4ML VIAL IV SCH ×2 (09:15→17:59)
[2022-08-04] MEDS: CARVEDILOL 3.125 MG TABLET PO SCH ×2 (09:15→18:00)
[2022-08-04] MEDS: AMOXICILLIN/POTASSIUM CLAVULANATE 500/125MG TAB PO SCH ×2 (09:16→21:16)
[2022-08-04] MEDS: ASPIRIN 81MG TABLET PO SCH (09:16)
[2022-08-04] MEDS: FAMOTIDINE 20MG TABLET PO SCH (09:16)
[2022-08-04] MEDS: AMIODARONE HCL 200 MG TABLET PO SCH ×2 (09:16→17:59)
[2022-08-04] MEDS ORDERED: IODIXANOL 320MG/ML 100 ML BOTTLE IV ONE (09:55)
[2022-08-04] MEDS ORDERED: HEPARIN 1000 UNITS/ML 10ML ONE (10:24)
[2022-08-04] MEDS ORDERED: FENTANYL CITRATE/PF 50MCG/ML 2ML VIAL ONE (10:24)
[2022-08-04] MEDS ORDERED: DIPHENHYDRAMINE 50MG/ML VIAL ONE (10:25)
[2022-08-04] MEDS ORDERED: LIDOCAINE HCL 1% 20ML VIAL (Pyxis) INJ ONE (10:25)
[2022-08-04] MEDS ORDERED: MIDAZOLAM HCL 2 MG/2 ML VIAL ONE (10:25)
[2022-08-04] MEDS ORDERED: ATROPINE SULFATE 1MG/10ML SYR IV PRN (12:15)
[2022-08-04] MEDS ORDERED: ACETAMINOPHEN 325MG TABLET PO PRN (12:15)
[2022-08-04] MEDS: ENOXAPARIN 80MG/0.8ML SYR SUBCUT SCH (17:37)
[2022-08-04] MEDS: ATORVASTATIN CALCIUM 40MG TABLET PO SCH (21:17)
[2022-08-04] MEDS ORDERED: LIP40 PO (22:52)
[2022-08-04] MEDS ORDERED: AMI2 PO (22:52)
[2022-08-04] MEDS ORDERED: COR3 PO (22:52)
[2022-08-04] MEDS ORDERED: FURO-151 PO (22:52)
[2022-08-04] MEDS ORDERED: ASPI-1160 PO (22:52)
[2022-08-05 06:23] LABS: BASOPHILS % 0.9 % (0.0-2.0); EOSINOPHILS % 4.5 % (0.0-5.0); HEMATOCRIT. 34.6 % (42.0-52.0); HEMOGLOBIN. 11.7 g/dL (14.0-18.0); LYMPHOCYTES % 20.9 % (20.0-50.0); MEAN CORPUSCULAR HEMOGLOBIN 31.9 pg (28.0-32.0); MEAN CORPUSCULAR VOLUME 94.1 fL (80.0-94.0); MEAN PLATELET VOLUME 8.8 fl (7.4-10.4); MONOCYTES % 8.8 % (2.0-8.0); NEUTROPHILS % 64.9 % (40.0-76.0); PLATELET 143 x1000/uL (130-400); RED BLOOD CELL COUNT 3.68 mill/uL (4.7-6.1); RED CELL DISTRIBUTION WIDTH 14.1 % (11.6-14.6)
[2022-08-05] MEDS: BLOOD SUGAR DIAGNOSTIC STRIP TEST SCH (07:53)
[2022-08-05] MEDS: INSULIN LISPRO 100 UNITS/ML SUBCUT SCH (07:59)
[2022-08-05 08:00] VITALS: BP 108/67
[2022-08-05] MEDS: FUROSEMIDE 40MG/4ML VIAL IV SCH (08:07)
[2022-08-05] MEDS: ASPIRIN 81MG TABLET PO SCH (08:07)
[2022-08-05] MEDS: CARVEDILOL 3.125 MG TABLET PO SCH (08:08)
[2022-08-05] MEDS: FAMOTIDINE 20MG TABLET PO SCH (08:08)
[2022-08-05] MEDS: AMIODARONE HCL 200 MG TABLET PO SCH (08:08)
[2022-08-05 09:23] VITALS: BP 108/67
== END 2022-08-05 12:56 | disposition home or self-care (01) | DRG 871 ==
LOC: ER 07:43 → MICUSO 10:52 → SUPCPDRO 13:18 → MICUNO 19:00 → 5EST 07-30 19:47
PROVIDERS: ADMIT Internal Medicine; ATTEND Internal Medicine
PROC: 02HV33Z Insertion of Infusion Device into Superior Vena Cava, Percutaneous Approach (ICD-10-PCS; 2022-07-29)
PROC: B548ZZA Ultrasonography of Superior Vena Cava, Guidance (ICD-10-PCS; 2022-07-29)
PROC: 5A09357 Assistance with Respiratory Ventilation, Less than 24 Consecutive Hours, Continuous Positive Airway Pressure (ICD-10-PCS; 2022-07-29)
PROC: 0BH17EZ Insertion of Endotracheal Airway into Trachea, Via Natural or Artificial Opening (ICD-10-PCS; 2022-07-29)
PROC: 5A1945Z Respiratory Ventilation, 24-96 Consecutive Hours (ICD-10-PCS; 2022-07-29)
PROC: 5A1D70Z Performance of Urinary Filtration, Intermittent, Less than 6 Hours Per Day (ICD-10-PCS; 2022-07-29)
PROC: 5A1D70Z Performance of Urinary Filtration, Intermittent, Less than 6 Hours Per Day (ICD-10-PCS; 2022-07-31)
PROC: 5A1D70Z Performance of Urinary Filtration, Intermittent, Less than 6 Hours Per Day (ICD-10-PCS; 2022-08-02)
PROC: 4A023N7 Measurement of Cardiac Sampling and Pressure, Left Heart, Percutaneous Approach (ICD-10-PCS; principal; 2022-08-04)
PROC: B211YZZ Fluoroscopy of Multiple Coronary Arteries using Other Contrast (ICD-10-PCS; 2022-08-04)
PROC: B218YZZ Fluoroscopy of Left Internal Mammary Bypass Graft using Other Contrast (ICD-10-PCS; 2022-08-04)
PROC: B41GYZZ Fluoroscopy of Left Lower Extremity Arteries using Other Contrast (ICD-10-PCS; 2022-08-04)
PROC: B213YZZ Fluoroscopy of Multiple Coronary Artery Bypass Grafts using Other Contrast (ICD-10-PCS; 2022-08-04)
PROC: 5A1D70Z Performance of Urinary Filtration, Intermittent, Less than 6 Hours Per Day (ICD-10-PCS; 2022-08-04)
DX: A41.9 Sepsis, unspecified organism (principal); G93.41 Metabolic encephalopathy; I21.4 Non-ST elevation (NSTEMI) myocardial infarction; I50.43 Acute on chronic combined systolic (congestive) and diastolic (congestive) heart failure; J18.9 Pneumonia, unspecified organism; J96.01 Acute respiratory failure with hypoxia; N18.6 End stage renal disease; I13.2 Hypertensive heart and chronic kidney disease with heart failure and with stage 5 chronic kidney disease, or end stage renal disease; N39.0 Urinary tract infection, site not specified; I47.1 Supraventricular tachycardia; E11.22 Type 2 diabetes mellitus with diabetic chronic kidney disease; E11.65 Type 2 diabetes mellitus with hyperglycemia; I07.1 Rheumatic tricuspid insufficiency; I37.1 Nonrheumatic pulmonary valve insufficiency; Z20.822 Contact with and (suspected) exposure to COVID-19; I25.5 Ischemic cardiomyopathy; I48.0 Paroxysmal atrial fibrillation; E78.5 Hyperlipidemia, unspecified; E87.5 Hyperkalemia; Z95.1 Presence of aortocoronary bypass graft; Z99.2 Dependence on renal dialysis; Z78.1 Physical restraint status; Z79.4 Long term (current) use of insulin; Z79.899 Other long term (current) drug therapy
CPT/HCPCS: 31500; 36415; 36573; 36600; 71045; 80048; 80053; 80061; 80305; 81003; 82375; 82550; 82553; 82805; 82962; 83036; 83605; 83880; 84145; 84439; 84443; 84484; 85025; 85379; 86705; 86709; 86803; 86850; 86900; 87070; 87340; 87426; 90935; 93005; 93306; 93459; 93970; 94002; 94003; 94640; 94660; 99285; A6261; C1725; C1760; C1769; C1887; C1893; C9113; C9803; J0282; J0330; J0456; J0610; J0696; J1200; J1644; J1650; J1815; J1940; J2250; J2543; J2704; J3010; J3490; J7060; Q9967

== ENCOUNTER 2023-08-04 10:57 | Inpatient (IN) | payer MEDICARE, OTHER ==
[2023-08-04] VITALS (35 sets, daily range): BP systolic 100–152; BP diastolic 25–95; PULSE 59–84; RESP 15–22; TEMP 96–98
[~2023-08-04] VITALS: Ht 165.1 cm; Wt 70.3 kg
[~2023-08-04 10:57] MED LIST: AMI2 PO; ASPI-1160 PO; COR3 PO; FURO-151 PO; LIP40 PO
[2023-08-04] MEDS: NOREPINEPHRINE 8MG/250ML PMX 250 ML IV PRN (11:37)
[2023-08-04] MEDS: MIDAZOLAM HCL 2 MG/2 ML VIAL IV ONE (11:38)
[2023-08-04] MEDS ORDERED: MIDAZOLAM 100MG/100ML PREMIX IV PRN (11:45)
[2023-08-04] MEDS ORDERED: FENTANYL 2500MCG/250ML PMX 250 ML IV ONE (11:45)
[2023-08-04] MEDS: SUCCINYLCHOLINE CHLORIDE 200MG/10ML IV ONE (11:45)
[2023-08-04] MEDS: ETOMIDATE 2MG/ML 10ML VIAL IV ONE (11:45)
[2023-08-04] MEDS ORDERED: EPINEPHRINE 10 MG in SODIUM CHLORIDE 0.9% 240 ML IV PRN (12:00)
[2023-08-04] MEDS: EPINEPHRINE 10 MG in SODIUM CHLORIDE 0.9% 240 ML IV PRN (12:14)
[2023-08-04] MEDS: ATROPINE SULFATE 1MG/ML VIAL IV ONE (12:21)
[2023-08-04] MEDS: FENTANYL CITRATE 2,500 MCG in SODIUM CHLORIDE 0.9% 200 ML IV PRN (12:35)
[2023-08-04] MEDS: MIDAZOLAM HCL 100 MG in DEXT 5% WATER 80 ML IV ONE (12:35)
[2023-08-04 12:37] LABS: HEMOGLOBIN. 9.7 g/dL (14.0-18.0); MEAN CORPUSCULAR HEMOGLOBIN 32.1 pg (28.0-32.0); MEAN CORPUSCULAR HGB CONC 33.3 g/dL (31.0-37.0); MEAN CORPUSCULAR VOLUME 96.3 fL (80.0-94.0); MEAN PLATELET VOLUME 9.1 fl (7.4-10.4); PLATELET 195 x1000/uL (130-400); RED BLOOD CELL COUNT 3.01 mill/uL (4.7-6.1); RED CELL DISTRIBUTION WIDTH 14.3 % (11.6-14.6); WHITE BLOOD COUNT 25.8 x1000/uL (4.5-11.0)
[2023-08-04 12:43] LABS: DIFFERENTIAL COMMENT 1
[2023-08-04 12:45] LABS: BG BASE EXCESS -8.8 mmol/L (-2.0-2.0); BG CARBOXYHEMOGLOBIN 0.3 % (0.5-1.5); BG DEOXYHEMOGLOBIN 0.9 % (0.0-5.0); BG FRACTION INSPIRED OXYGEN 100; BG HCO3 ACT 18.1 mmol/L (22.0-26.0); BG METHEMOGLOBIN 0.3 % (0.0-1.5); BG OXYGEN SATURATION 99.1 % (92.0-98.5); BG OXYHEMOGLOBIN 98.5 % (94.0-97.0); BG PH 7.241 (7.350-7.450); BG PO2 500.8 mmHg (75.0-100.0); BG SAMPLE SITE RIGHT BRACHIAL; BG TOTAL HEMOGLOBIN 10.7 g/dL (12.0-18.0); BG TOTAL RESPIRATORY RATE 16 b/min; BG VENT MODE VENT - AC
[2023-08-04 12:47] LABS: INR 1.2; PROTHROMBIN TIME 13.1 sec (9.6-11.0)
[2023-08-04 13:05] LABS: LACTIC ACID 3.1 mmol/L (0.4-2.0)
[2023-08-04 14:04] LABS: ALANINE AMINOTRANSFERASE 184 IU/L (10-49); ALBUMIN 3.8 g/dL (3.2-4.8); ASPARTATE AMINOTRANSFERASE 171 IU/L (<34); BILIRUBIN TOTAL 0.4 mg/dL (0.1-1.0); CALCIUM 8.6 mg/dL (8.7-10.4); CARBON DIOXIDE 21 mEq/L (21-32); CHLORIDE 103 mEq/L (98-107); GLUCOSE 286 mg/dL (70-105); PROTEIN TOTAL 6.3 g/dL (6.0-8.3); SODIUM 137 mEq/L (136-145); UREA NITROGEN BLOOD 93 mg/dL (9-23)
[2023-08-04 14:06] LABS: PLATELET ESTIMATE NORMAL
[2023-08-04 14:15] LABS: POTASSIUM 7.9 mEq/L (3.5-5.1)
[2023-08-04 14:16] LABS: CREATININE 9.1 mg/dL (0.6-1.3); TROPONIN I HIGH SENSITIVITY 184 ng/L (3.0-53)
[2023-08-04] MEDS ORDERED: SODIUM BICARBONATE 8.4% 1 MEQ/ML 50ML SYR IV NR (14:45)
[2023-08-04] MEDS ORDERED: INSULIN REGULAR (HUMULIN R) 300UNITS/3ML VIAL IV NR (14:45)
[2023-08-04] MEDS ORDERED: CALCIUM GLUCONATE 100MG/ML 10ML VIAL IV NR (15:00)
[2023-08-04 15:29] LABS: TROPONIN I HIGH SENSITIVITY 381 ng/L (3.0-53)
[2023-08-04 20:52] LABS: TROPONIN I HIGH SENSITIVITY 561 ng/L (3.0-53)
[2023-08-04] MEDS ORDERED: CLONIDINE 0.1MG TABLET PO PRN (21:00)
[2023-08-04] MEDS ORDERED: ONDANSETRON HCL 4MG/2ML INJ IV PRN (21:00)
[2023-08-04] MEDS ORDERED: ACETAMINOPHEN 325MG TABLET PO PRN ×2 (21:00)
[2023-08-04] MEDS ORDERED: ACETAMINOPHEN 650MG/20.3ML UDC GT PRN ×2 (21:00)
[2023-08-04] MEDS ORDERED: IPRATROPIUM/ALBUTEROL 0.5-3(2.5)MG/3ML NEB HHN PRN (21:00)
[2023-08-04 21:23] LABS: CHOLESTEROL 94 mg/dL (<200); HDL CHOLESTEROL 38 mg/dL (>55); LDL CHOLESTEROL 35 mg/dL (5-100); PHOSPHORUS 4.5 mg/dL (2.5-4.9); THYROID STIMULATING HORMONE 3.25 uIU/mL (0.55-4.78); TRIGLYCERIDE 110 mg/dL (0-150)
[2023-08-04 21:33] LABS: POTASSIUM 7.9 mEq/L (3.5-5.1)
[2023-08-04] MEDS: PANTOPRAZOLE SODIUM 40 MG/VIAL IV SCH (21:39)
[2023-08-04] MEDS: INSULIN LISPRO 100 UNITS/ML SUBCUT SCH (21:49)
[2023-08-04] MEDS: BLOOD SUGAR DIAGNOSTIC STRIP TEST SCH (21:49)
[2023-08-04] MEDS ORDERED: INSULIN GLARGINE 100 UNITS/ML SUBCUT NR (22:15)
[2023-08-04] MEDS: DEXTROSE 50% WATER 50ML SYRINGE IV ONE (22:48)
[2023-08-04] MEDS: SODIUM BICARBONATE 8.4% 1 MEQ/ML 50ML SYR IV ONE (22:49)
[2023-08-04] MEDS: INSULIN REGULAR (HUMULIN R) 300UNITS/3ML VIAL IV NR (23:09)
[2023-08-04 23:21] LABS: BG BASE EXCESS -5.2 mmol/L (-2.0-2.0); BG CARBOXYHEMOGLOBIN 0.3 % (0.5-1.5); BG FRACTION INSPIRED OXYGEN 40; BG HCO3 ACT 19.2 mmol/L (22.0-26.0); BG METHEMOGLOBIN 0.1 % (0.0-1.5); BG OXYHEMOGLOBIN 97.6 % (94.0-97.0); BG PCO2 33.2 mmHg (35.0-45.0); BG PO2 140.6 mmHg (75.0-100.0); BG SAMPLE SITE RIGHT BRACHIAL; BG TOTAL HEMOGLOBIN 10.5 g/dL (12.0-18.0); BG VENT MODE VENT - AC
[2023-08-04] MEDS: VANCOMYCIN 1,750 MG in DEXT 5% WATER 500 ML IV NR (23:54)
[2023-08-04] MEDS: CALCIUM GLUCONATE 1GM PREMIX 50 ML IV NR (23:54)
[2023-08-04] MEDS: PIPERACILLIN/TAZO 3.375G/50ML 50 ML IV SCH (23:55)
[2023-08-05] VITALS (98 sets, daily range): BP systolic 68–185; BP diastolic 30–137; PULSE 44–109; RESP 12–30; TEMP 97.9–98.9; O2SAT 98
[2023-08-05] MEDS: ALBUTEROL (0.083%) 2.5MG/3ML NEB HHN ONE (00:27)
[2023-08-05 00:37] LABS: HEPATITIS A AB IGM NEGATIVE (Negative); HEPATITIS B CORE AB IGM NEGATIVE (Negative); HEPATITIS B SURFACE ANTIGEN NEGATIVE (Negative); HEPATITIS C AB NON REACTIVE (Neg) (Negative)
[2023-08-05] MEDS ORDERED: FENTANYL 2500MCG/250ML PMX 250 ML IV PRN (02:45)
[2023-08-05] MEDS ORDERED: FENTANYL CITRATE 2,500 MCG in SODIUM CHLORIDE 0.9% 200 ML IV PRN (02:45)
[2023-08-05 05:10] LABS: HEMATOCRIT. 28.4 % (42.0-52.0); HEMOGLOBIN. 9.3 g/dL (14.0-18.0); MEAN CORPUSCULAR HEMOGLOBIN 31.5 pg (28.0-32.0); MEAN CORPUSCULAR HGB CONC 32.8 g/dL (31.0-37.0); MEAN CORPUSCULAR VOLUME 96.2 fL (80.0-94.0); MEAN PLATELET VOLUME 8.6 fl (7.4-10.4); PLATELET 167 x1000/uL (130-400); RED BLOOD CELL COUNT 2.95 mill/uL (4.7-6.1); RED CELL DISTRIBUTION WIDTH 14.5 % (11.6-14.6); WHITE BLOOD COUNT 12.9 x1000/uL (4.5-11.0)
[2023-08-05 05:19] LABS: CALCIUM 8.4 mg/dL (8.7-10.4); CARBON DIOXIDE 25 mEq/L (21-32); CHLORIDE 102 mEq/L (98-107); GLUCOSE 256 mg/dL (70-105); PHOSPHORUS 2.6 mg/dL (2.5-4.9); POTASSIUM 4.7 mEq/L (3.5-5.1); SODIUM 139 mEq/L (136-145); UREA NITROGEN BLOOD 70 mg/dL (9-23)
[2023-08-05 05:45] LABS: DIFFERENTIAL COMMENT 1
[2023-08-05 05:52] LABS: CREATININE 7.3 mg/dL (0.6-1.3)
[2023-08-05 08:55] LABS: BG BASE EXCESS 0.6 mmol/L (-2.0-2.0); BG CARBOXYHEMOGLOBIN 0.3 % (0.5-1.5); BG DEOXYHEMOGLOBIN 1.5 % (0.0-5.0); BG FRACTION INSPIRED OXYGEN 40; BG HCO3 ACT 23.4 mmol/L (22.0-26.0); BG OXYGEN SATURATION 98.5 % (92.0-98.5); BG OXYHEMOGLOBIN 98.2 % (94.0-97.0); BG PCO2 30.7 mmHg (35.0-45.0); BG PO2 194.1 mmHg (75.0-100.0); BG SAMPLE SITE RIGHT RADIAL; BG TOTAL HEMOGLOBIN 9.3 g/dL (12.0-18.0); BG VENT MODE VENT - AC
[2023-08-05] MEDS: PIPERACILLIN/TAZO 3.375G/50ML 50 ML IV SCH (09:14)
[2023-08-05 10:40] LABS: BG BASE EXCESS -1.1 mmol/L (-2.0-2.0); BG CARBOXYHEMOGLOBIN 0.2 % (0.5-1.5); BG DEOXYHEMOGLOBIN 2.2 % (0.0-5.0); BG FRACTION INSPIRED OXYGEN 40; BG HCO3 ACT 23.3 mmol/L (22.0-26.0); BG METHEMOGLOBIN 0.1 % (0.0-1.5); BG OXYGEN SATURATION 97.8 % (92.0-98.5); BG OXYHEMOGLOBIN 97.5 % (94.0-97.0); BG PCO2 37.5 mmHg (35.0-45.0); BG PH 7.411 (7.350-7.450); BG PO2 138.6 mmHg (75.0-100.0); BG SAMPLE SITE RIGHT RADIAL; BG TOTAL HEMOGLOBIN 10.1 g/dL (12.0-18.0); BG VENT MODE VENT - CPAP
[2023-08-05] MEDS: FOLIC ACID/VITAMIN B COMP W-C TABLET PO SCH (14:48)
[2023-08-05 16:11] LABS: PLATELET ESTIMATE NORMAL
[2023-08-05 17:07] LABS: HEMATOCRIT 30.1 % (42.0-52.0); HEMOGLOBIN 9.7 g/dL (14.0-18.0); MEAN CORPUSCULAR HEMOGLOBIN 30.8 pg (28.0-32.0); MEAN CORPUSCULAR HGB CONC 32.4 g/dL (31.0-37.0); MEAN CORPUSCULAR VOLUME 95.2 fL (80.0-94.0); PLATELET 178 x1000/uL (130-400); RED BLOOD CELL COUNT 3.17 mill/uL (4.7-6.1); WHITE BLOOD COUNT 25.8 x1000/uL (4.5-11.0)
[2023-08-05 17:26] LABS: CALCIUM 8.8 mg/dL (8.7-10.4)
[2023-08-05 17:36] LABS: CREATININE 8.2 mg/dL (0.6-1.3); POTASSIUM 6.9 mEq/L (3.5-5.1)
[2023-08-05] MEDS: EPOETIN ALFA 4000UNITS/ML VIAL SUBCUT SCH (21:05)
[2023-08-05] MEDS: SODIUM BICARBONATE 8.4% 1 MEQ/ML 50ML SYR IV SCH (22:09)
[2023-08-05] MEDS: DEXTROSE 50% WATER 50ML SYRINGE IV SCH (22:09)
[2023-08-05] MEDS: INSULIN REGULAR (HUMULIN R) 300UNITS/3ML VIAL IV SCH (22:10)
[2023-08-05] MEDS: ALBUTEROL (0.5%) 2.5MG/0.5ML NEB HHN SCH (22:35)
[2023-08-06] VITALS (94 sets, daily range): BP systolic 76–140; BP diastolic 33–104; PULSE 60–88; RESP 11–30; TEMP 97.8–99.5
[2023-08-06] MEDS: DEXTROSE 50% WATER 50ML SYRINGE IV PRN (00:44)
[2023-08-06 01:13] LABS: ALANINE AMINOTRANSFERASE 107 IU/L (10-49); ALBUMIN 3.6 g/dL (3.2-4.8); ASPARTATE AMINOTRANSFERASE 69 IU/L (<34); BILIRUBIN TOTAL 0.5 mg/dL (0.1-1.0); CALCIUM 8.6 mg/dL (8.7-10.4); CARBON DIOXIDE 24 mEq/L (21-32); CHLORIDE 105 mEq/L (98-107); GLUCOSE 77 mg/dL (70-105); POTASSIUM 5.8 mEq/L (3.5-5.1); PROTEIN TOTAL 5.5 g/dL (6.0-8.3); SODIUM 140 mEq/L (136-145); UREA NITROGEN BLOOD 83 mg/dL (9-23)
[2023-08-06 05:19] LABS: BASOPHILS % 0.3 % (0.0-2.0); EOSINOPHILS % 0.2 % (0.0-5.0); HEMATOCRIT. 25.9 % (42.0-52.0); HEMOGLOBIN. 8.6 g/dL (14.0-18.0); LYMPHOCYTES % 9.7 % (20.0-50.0); MEAN CORPUSCULAR HEMOGLOBIN 31.9 pg (28.0-32.0); MEAN CORPUSCULAR HGB CONC 33.2 g/dL (31.0-37.0); MEAN CORPUSCULAR VOLUME 96.2 fL (80.0-94.0); MEAN PLATELET VOLUME 8.6 fl (7.4-10.4); MONOCYTES % 9.7 % (2.0-8.0); NEUTROPHILS % 80.1 % (40.0-76.0); PLATELET 130 x1000/uL (130-400); RED BLOOD CELL COUNT 2.69 mill/uL (4.7-6.1); WHITE BLOOD COUNT 12.6 x1000/uL (4.5-11.0)
[2023-08-06 05:37] LABS: CARBON DIOXIDE 24 mEq/L (21-32); CHLORIDE 104 mEq/L (98-107); SODIUM 140 mEq/L (136-145)
[2023-08-06 05:39] LABS: POTASSIUM 6.4 mEq/L (3.5-5.1)
[2023-08-06] MEDS: NOREPINEPHRINE 8MG/250ML PMX 250 ML IV PRN (09:00)
[2023-08-06] MEDS: MIDODRINE HCL 5MG TABLET PO SCH (14:50)
[2023-08-06 15:47] LABS: POTASSIUM 5.5 mEq/L (3.5-5.1)
[2023-08-06] MEDS: SODIUM POLYSTYRENE SULFONATE 15 G/60 ML BOT PO NR (16:59)
[2023-08-06] MEDS: LORAZEPAM 1MG TABLET PO NR (17:00)
[2023-08-06] MEDS: VANCOMYCIN 500MG/100ML IV NR (20:46)
[2023-08-06] MEDS ORDERED: IOHEXOL-350 100 ML BOTTLE ONE (23:21)
[2023-08-06] MEDS ORDERED: NALOXONE HCL 0.4MG/ML VIAL IV PRN (23:45)
[2023-08-07] VITALS (75 sets, daily range): BP systolic 79–170; BP diastolic 32–72; PULSE 60–91; RESP 15–37; TEMP 97.5–98.6
[2023-08-07] MEDS: LORAZEPAM 1MG TABLET PO NR (00:45)
[2023-08-07 02:05] LABS: TROPONIN I HIGH SENSITIVITY 1474 ng/L (3.0-53)
[2023-08-07] MEDS: HYDROCODONE/ACETAMINOPHEN 5/325MG TABLET PO PRN (02:53)
[2023-08-07 05:40] LABS: BASOPHILS % 0.3 % (0.0-2.0); EOSINOPHILS % 1.8 % (0.0-5.0); HEMATOCRIT. 24.7 % (42.0-52.0); HEMOGLOBIN. 8.2 g/dL (14.0-18.0); LYMPHOCYTES % 11.1 % (20.0-50.0); MEAN CORPUSCULAR HEMOGLOBIN 31.9 pg (28.0-32.0); MEAN CORPUSCULAR HGB CONC 33.4 g/dL (31.0-37.0); MEAN CORPUSCULAR VOLUME 95.7 fL (80.0-94.0); MEAN PLATELET VOLUME 8.9 fl (7.4-10.4); MONOCYTES % 10.6 % (2.0-8.0); NEUTROPHILS % 76.2 % (40.0-76.0); PLATELET 123 x1000/uL (130-400); RED BLOOD CELL COUNT 2.58 mill/uL (4.7-6.1); WHITE BLOOD COUNT 10.5 x1000/uL (4.5-11.0)
[2023-08-07 05:50] LABS: CALCIUM 8.2 mg/dL (8.7-10.4); POTASSIUM 4.6 mEq/L (3.5-5.1)
[2023-08-07 05:54] LABS: CREATININE 8.2 mg/dL (0.6-1.3)
[2023-08-08] VITALS (40 sets, daily range): BP systolic 96–166; BP diastolic 30–72; PULSE 56–82; RESP 12–25; TEMP 97.5–98.7
[2023-08-08 05:48] LABS: CALCIUM 7.4 mg/dL (8.7-10.4); POTASSIUM 4.5 mEq/L (3.5-5.1)
[2023-08-08 05:56] LABS: CREATININE 9.9 mg/dL (0.6-1.3)
== END 2023-08-08 20:30 | disposition short-term general hospital (02) | DRG 871 ==
LOC: ER 10:57 → MICUSO 12:08 → EDBEDREQ 12:19 → 7WST 08-08 12:28
PROVIDERS: ADMIT Family Medicine Adult Medicine; ATTEND Family Medicine Adult Medicine
PROC: 0BH17EZ Insertion of Endotracheal Airway into Trachea, Via Natural or Artificial Opening (ICD-10-PCS; principal; 2023-08-04)
PROC: 5A1935Z Respiratory Ventilation, Less than 24 Consecutive Hours (ICD-10-PCS; 2023-08-04)
PROC: 06HN33Z Insertion of Infusion Device into Left Femoral Vein, Percutaneous Approach (ICD-10-PCS; 2023-08-04)
PROC: B54CZZA Ultrasonography of Left Lower Extremity Veins, Guidance (ICD-10-PCS; 2023-08-04)
PROC: 5A12012 Performance of Cardiac Output, Single, Manual (ICD-10-PCS; 2023-08-04)
PROC: 5A1D70Z Performance of Urinary Filtration, Intermittent, Less than 6 Hours Per Day (ICD-10-PCS; 2023-08-04)
PROC: 5A1D70Z Performance of Urinary Filtration, Intermittent, Less than 6 Hours Per Day (ICD-10-PCS; 2023-08-05)
PROC: 5A1D70Z Performance of Urinary Filtration, Intermittent, Less than 6 Hours Per Day (ICD-10-PCS; 2023-08-07)
DX: A41.9 Sepsis, unspecified organism (principal); I46.9 Cardiac arrest, cause unspecified; J69.0 Pneumonitis due to inhalation of food and vomit; R65.21 Severe sepsis with septic shock; J96.01 Acute respiratory failure with hypoxia; N18.6 End stage renal disease; J18.9 Pneumonia, unspecified organism; I50.21 Acute systolic (congestive) heart failure; G93.40 Encephalopathy, unspecified; J90 Pleural effusion, not elsewhere classified; I13.2 Hypertensive heart and chronic kidney disease with heart failure and with stage 5 chronic kidney disease, or end stage renal disease; I07.1 Rheumatic tricuspid insufficiency; Z20.822 Contact with and (suspected) exposure to COVID-19; I25.10 Atherosclerotic heart disease of native coronary artery without angina pectoris; D64.9 Anemia, unspecified; E11.22 Type 2 diabetes mellitus with diabetic chronic kidney disease; Z99.2 Dependence on renal dialysis; E87.5 Hyperkalemia; Z95.1 Presence of aortocoronary bypass graft; Z86.73 Personal history of transient ischemic attack (TIA), and cerebral infarction without residual deficits
CPT/HCPCS: 36415; 36600; 71045; 71275; 80048; 80051; 80053; 80061; 80202; 80305; 82375; 82805; 82962; 83036; 83605; 83735; 83880; 84100; 84132; 84145; 84443; 84484; 84520; 85025; 85027; 85379; 86705; 86709; 87340; 87426; 87804; 90935; 93005; 93306; 93970; 94002; 94003; 94640; 99291; C9113; J0461; J0610; J0885; J1815; J2250; J2543; J3010; J3370; J3490; J7050; J7060; Q9967